=== PATIENT | male | born 1980 | race Hispanic/Latino ===

== ENCOUNTER → 2021-01-02 | Outpatient (CLI) | payer MEDICARE | END | disposition home or self-care (01) | LOC: SHCH 13:27 | PROVIDERS: ATTEND Internal Medicine Cardiovascular Disease | DX: I08.3 Combined rheumatic disorders of mitral, aortic and tricuspid valves (principal); I27.20 Pulmonary hypertension, unspecified; I10 Essential (primary) hypertension; E66.9 Obesity, unspecified; E78.5 Hyperlipidemia, unspecified; Z83.3 Family history of diabetes mellitus; F17.210 Nicotine dependence, cigarettes, uncomplicated | CPT/HCPCS: 93306; 93356 ==

== ENCOUNTER 2021-03-06 06:53 | Inpatient (IN) | payer MEDICARE ==
[2021-03-02 11:26] LABS: BASOPHILS % (AUTO) 0.8 % (0.0-5.0); EOSINOPHILS % (AUTO) 1.9 % (0.0-8.0); HEMATOCRIT 38.3 % (42-54); LYMPHOCYTES % (AUTO) 27.9 % (21.0-51.0); MEAN CORPUSCULAR HEMOGLOBIN 31.6 pg (27.0-33.0); MEAN CORPUSCULAR HGB CONC 32.9 g/dL (32.0-36.0); MONOCYTES % (AUTO) 4.7 % (3.0-13.0); NEUTROPHILS % (AUTO) 64.3 % (40.0-77.0); PLATELET COUNT (AUTO) 219 K/uL (130-400); RED BLOOD CELL COUNT(AUTO) 3.99 MIL/uL (4.50-6.20); RED CELL DISTRIBUTION WIDTH 13.2 % (11.0-15.5); WHITE BLOOD COUNT (AUTO) 7.8 K/uL (4.8-10.8)
[2021-03-02 11:36] LABS: POTASSIUM 4.9 mmol/L (3.5-5.1)
[2021-03-02 11:38] LABS: CREATININE 11.5 mg/dL (0.5-1.5)
[2021-03-02 11:55] LABS: INR 1.03 (0.85-1.15); PROTHROMBIN TIME 11.2 SEC (9.6-11.6)
[2021-03-02 11:56] LABS: PARTIAL THROMBOPLASTIN TIME 30.2 SEC (26.3-35.5)
[2021-03-04] MEDS: DiphenhydrAMINE HCL 50 MG/ML VIAL IVP SCH (09:45)
[2021-03-05] MEDS: DiphenhydrAMINE HCL 50 MG/ML VIAL IVP SCH (15:00)
[~2021-03-06] VITALS: Ht 167.6 cm; Wt 107.0 kg
[2021-03-06] VITALS (17 sets, daily range): BP systolic 108–224; BP diastolic 63–94
[~2021-03-06 06:53] MED LIST: 0.9% NACL 500ML IV.SOLN 500 ML IV SCH; ACETAMINOPHEN 325 MG TAB PO PRN; APIX2.5T PO; ATOR20TA65 PO; CLON0.2T PO; CLOP75TA14 PO; OMEG100014 PO; PANT40TA55 PO; PROM25TA7 PO; ZOLP5TAB8 PO; auryxia PO
[2021-03-06] MEDS ORDERED: 0.9%NACL 1000ML 1,000 ML IV SCH ×2 (08:00→15:30)
[2021-03-06] MEDS ORDERED: INSULIN HUMULIN R 100 UNIT/ML 3ML ONE ×3 (08:48→10:37)
[2021-03-06] MEDS ORDERED: IOHEXOL 350 MG/ML 100ML INFUS..BTL IV ONE (09:40)
[2021-03-06] MEDS ORDERED: MEPERIDINE-PF 25 MG/ML SYG ONE (09:40)
[2021-03-06] MEDS ORDERED: HEPARIN 10,000 UNIT/10ML (1,000 UNIT/ML) VIAL ONE (09:40)
[2021-03-06] MEDS ORDERED: MIDAZOLAM HCL 1 MG/ML 2ML VIAL ONE (09:40)
[2021-03-06] MEDS ORDERED: NITROGLYCERIN 2 MG VIAL IV ONE (09:40)
[2021-03-06] MEDS ORDERED: IOHEXOL-350 50ML VIAL IV ONE (09:40)
[2021-03-06] MEDS ORDERED: LIDOCAINE HCL 400MG/20ML VIAL ONE (09:40)
[2021-03-06] MEDS: SOLU-MEDROL 125MG VIAL IVP SCH ×2 (09:50→15:41)
[2021-03-06] MEDS ORDERED: LABETALOL 20MG VIAL IV ONE (10:29)
[2021-03-06] MEDS ORDERED: HYDRALAZINE 20MG/ML VIAL ONE (10:34)
[2021-03-06] MEDS ORDERED: DEXTROSE 50%-WATER 50 ML DISP.SYRIN IV PRN ×2 (11:30→19:30)
[2021-03-06] MEDS ORDERED: GLUCAGON 1MG KIT 1 MG ML IM PRN ×2 (11:30→19:30)
[2021-03-06] MEDS ORDERED: INSULIN HUMULIN R 100 UNIT/ML 3ML SQ SCH (12:00)
[2021-03-06 12:24] LABS: LYMPHOCYTES % (AUTO) 5.2 % (21.0-51.0); MEAN CORPUSCULAR HEMOGLOBIN 32.6 pg (27.0-33.0); MEAN CORPUSCULAR VOLUME 93.2 fL (79-99); MONOCYTES % (AUTO) 1.3 % (3.0-13.0); NEUTROPHILS % (AUTO) 92.9 % (40.0-77.0); PLATELET COUNT (AUTO) 211 K/uL (130-400); RED BLOOD CELL COUNT(AUTO) 3.65 MIL/uL (4.50-6.20); RED CELL DISTRIBUTION WIDTH 12.7 % (11.0-15.5); WHITE BLOOD COUNT (AUTO) 13.4 K/uL (4.8-10.8)
[2021-03-06] MEDS ORDERED: POTASSIUM CHLORIDE 10MEQ/100ML 100 ML IV PRN ×2 (12:30→15:30)
[2021-03-06] MEDS ORDERED: PROMETHAZINE HCL 25 MG TABLET PO PRN (12:30)
[2021-03-06] MEDS ORDERED: CLONIDINE HCL 0.2 MG TABLET PO PRN (12:30)
[2021-03-06 12:31] LABS: ALBUMIN 3.5 g/dL (3.5-5.0); BILIRUBIN,TOTAL 0.4 mg/dL (0.2-1.0); POTASSIUM 4.2 mmol/L (3.5-5.1); TOTAL PROTEIN, SERUM 7.5 g/dL (6.0-8.3)
[2021-03-06 12:34] LABS: CREATININE 9.5 mg/dL (0.5-1.5); HEMOGLOBIN A1C 10.4 % (4.0-6.0)
[2021-03-06 14:25] LABS: ABG BASE EXCESS -4.2 mmol/L (-2.0-3.0); ABG HCO3 19.8 mmol/L (21.0-28.0); ABG OXYGEN SATURATION 97.8 % (95.0-99.0); ABG PCO2 33 mmHg (35-48)
[2021-03-06] MEDS ORDERED: AMLODIPINE 5 MG TAB PO ONE (15:00)
[2021-03-06] MEDS ORDERED: ACETAMINOPHEN WITH CODEINE 1 TAB TAB ONE (15:13)
[2021-03-06] MEDS ORDERED: INSULIN REGULAR, HUMAN 3ML 100 UNIT in 0.9%NACL 100ML 99 ML IV PRN ×2 (15:30)
[2021-03-06] MEDS: INSULIN HUMULIN R 100 UNIT/ML 3ML IV SCH (15:30)
[2021-03-06] MEDS ORDERED: DEXTROSE 5 %-0.45 % NACL 1,000 ML IV PRN (15:30)
[2021-03-06] MEDS: ACETAMINOPHEN WITH CODEINE 1 TAB TAB PO PRN (15:43)
[2021-03-06] MEDS: FERRIC CITRATE PO SCH (16:45)
[2021-03-06 17:18] LABS: POTASSIUM 5.1 mmol/L (3.5-5.1)
[2021-03-06 17:37] LABS: CREATININE 9.8 mg/dL (0.5-1.5)
[2021-03-06] MEDS: DiphenhydrAMINE HCL 50 MG/ML VIAL IVP SCH (19:00)
[2021-03-06] MEDS: ATORVASTATIN 20 MG TABLET PO SCH (20:29)
[2021-03-06] MEDS: PANTOPRAZOLE 40 MG TAB DR PO SCH (20:29)
[2021-03-06 23:55] LABS: POTASSIUM 5.3 mmol/L (3.5-5.1)
[2021-03-07] VITALS (38 sets, daily range): BP systolic 97–148; BP diastolic 42–83
[2021-03-07 00:05] LABS: CREATININE 10.4 mg/dL (0.5-1.5)
[2021-03-07 05:51] LABS: POTASSIUM 5.2 mmol/L (3.5-5.1)
[2021-03-07 06:00] LABS: CREATININE 11.1 mg/dL (0.5-1.5)
[2021-03-07] MEDS: FERRIC CITRATE PO SCH ×3 (08:00→16:30)
[2021-03-07] MEDS: INSULIN HUMULIN R 100 UNIT/ML 3ML IV SCH (08:33)
[2021-03-07] MEDS: FISH OIL 1000 MG/CAP PO SCH (08:56)
[2021-03-07] MEDS: PANTOPRAZOLE 40 MG TAB DR PO SCH ×2 (08:56→20:49)
[2021-03-07] MEDS: ACETAMINOPHEN WITH CODEINE 1 TAB TAB PO PRN (08:57)
[2021-03-07 11:56] LABS: POTASSIUM 4.7 mmol/L (3.5-5.1)
[2021-03-07 12:00] LABS: CREATININE 11.7 mg/dL (0.5-1.5)
[2021-03-07] MEDS ORDERED: INSULIN GLARGINE 100 UNITS/ML 10 ML VIAL SQ ONE (15:45)
[2021-03-07] MEDS: INSULIN HUMULIN R 100 UNIT/ML 3ML SQ SCH ×3 (16:28→20:50)
[2021-03-07 19:46] LABS: CHOLESTEROL 157 mg/dL (<200); HDL CHOLESTEROL 53 mg/dL (29-71); LDL DIRECT 82 mg/dL (0-99); TRIGLYCERIDES 72 mg/dL (30-200)
[2021-03-07] MEDS: ATORVASTATIN 20 MG TABLET PO SCH (20:49)
[2021-03-08] VITALS (27 sets, daily range): BP systolic 77–143; BP diastolic 49–89
[2021-03-08] MEDS: INSULIN HUMULIN R 100 UNIT/ML 3ML SQ SCH ×8 (05:47→20:29)
[2021-03-08] MEDS: FERRIC CITRATE PO SCH ×3 (08:00→17:00)
[2021-03-08 08:15] LABS: HEPATITIS Bs ANTIGEN SCREEN P Negative (Negative)
[2021-03-08] MEDS: SOLU-MEDROL 40MG VIAL IVP SCH (08:30)
[2021-03-08] MEDS: DiphenhydrAMINE HCL 50 MG/ML VIAL IV SCH (08:30)
[2021-03-08 08:34] LABS: BASOPHILS % (AUTO) 0.2 % (0.0-5.0); EOSINOPHILS % (AUTO) 0.5 % (0.0-8.0); HEMATOCRIT 39.1 % (42-54); LYMPHOCYTES % (AUTO) 25.9 % (21.0-51.0); MEAN CORPUSCULAR HEMOGLOBIN 31.4 pg (27.0-33.0); MEAN CORPUSCULAR HGB CONC 34.3 g/dL (32.0-36.0); MEAN CORPUSCULAR VOLUME 91.6 fL (79-99); MONOCYTES % (AUTO) 7.6 % (3.0-13.0); NEUTROPHILS % (AUTO) 65.3 % (40.0-77.0); PLATELET COUNT (AUTO) 250 K/uL (130-400); RED BLOOD CELL COUNT(AUTO) 4.27 MIL/uL (4.50-6.20); RED CELL DISTRIBUTION WIDTH 13.4 % (11.0-15.5); WHITE BLOOD COUNT (AUTO) 11.4 K/uL (4.8-10.8)
[2021-03-08 08:42] LABS: MAGNESIUM 1.9 mg/dL (1.80-2.40); POTASSIUM 3.8 mmol/L (3.5-5.1)
[2021-03-08 08:48] LABS: CREATININE 9.5 mg/dL (0.5-1.5)
[2021-03-08 08:57] LABS: INR 1.07 (0.85-1.15); PROTHROMBIN TIME 11.6 SEC (9.6-11.6)
[2021-03-08] MEDS ORDERED: HEPARIN 10,000 UNIT/10ML (1,000 UNIT/ML) VIAL ONE (08:57)
[2021-03-08 08:58] LABS: PARTIAL THROMBOPLASTIN TIME 24.6 SEC (26.3-35.5)
[2021-03-08] MEDS ORDERED: NITROGLYCERIN 2 MG VIAL IV ONE (08:58)
[2021-03-08] MEDS ORDERED: IOHEXOL-350 50ML VIAL IV ONE (08:58)
[2021-03-08] MEDS ORDERED: MIDAZOLAM HCL 1 MG/ML 2ML VIAL ONE (08:58)
[2021-03-08] MEDS ORDERED: FENTANYL CITRATE PF 50 MCG/1 ML 2ML VIAL ONE (08:58)
[2021-03-08] MEDS ORDERED: IOHEXOL 350 MG/ML 100ML INFUS..BTL IV ONE (08:58)
[2021-03-08] MEDS ORDERED: LIDOCAINE HCL 400MG/20ML VIAL ONE ×2 (08:59→12:22)
[2021-03-08] MEDS: FISH OIL 1000 MG/CAP PO SCH (09:00)
[2021-03-08] MEDS ORDERED: MIDODRINE HCL 5 MG TABLET PO SCH (09:30)
[2021-03-08] MEDS ORDERED: 0.9% NACL 500ML IV.SOLN 500 ML IV ONE (09:30)
[2021-03-08] MEDS: MIDODRINE HCL 5 MG TABLET PO SCH ×3 (09:35→20:27)
[2021-03-08] MEDS: PANTOPRAZOLE 40 MG TAB DR PO SCH ×2 (09:35→20:27)
[2021-03-08] MEDS ORDERED: SOLU-MEDROL 125MG VIAL ONE (12:10)
[2021-03-08] MEDS ORDERED: TRAMADOL HCL 50 MG TABLET PO ONE (14:00)
[2021-03-08] MEDS: ACETAMINOPHEN WITH CODEINE 1 TAB TAB PO PRN ×2 (16:27→20:27)
[2021-03-08] MEDS: ATORVASTATIN 20 MG TABLET PO SCH (20:27)
[2021-03-08] MEDS: TRAMADOL /APAP 37.5MG/325MG TAB PO PRN (20:28)
[2021-03-09] VITALS (30 sets, daily range): BP systolic 93–148; BP diastolic 42–98
[2021-03-09] MEDS: ACETAMINOPHEN WITH CODEINE 1 TAB TAB PO PRN ×2 (02:43→07:46)
[2021-03-09] MEDS: TRAMADOL /APAP 37.5MG/325MG TAB PO PRN ×2 (02:43→11:31)
[2021-03-09 03:48] LABS: HEMATOCRIT 39.1 % (42-54); LYMPHOCYTES % (AUTO) 11.2 % (21.0-51.0); MEAN CORPUSCULAR HEMOGLOBIN 31.7 pg (27.0-33.0); MEAN CORPUSCULAR VOLUME 93.3 fL (79-99); NEUTROPHILS % (AUTO) 79.3 % (40.0-77.0); PLATELET COUNT (AUTO) 230 K/uL (130-400); RED BLOOD CELL COUNT(AUTO) 4.19 MIL/uL (4.50-6.20); RED CELL DISTRIBUTION WIDTH 13.6 % (11.0-15.5); WHITE BLOOD COUNT (AUTO) 9.3 K/uL (4.8-10.8)
[2021-03-09 04:13] LABS: MAGNESIUM 2.1 mg/dL (1.80-2.40); POTASSIUM 5.6 mmol/L (3.5-5.1)
[2021-03-09 04:16] LABS: CREATININE 11.8 mg/dL (0.5-1.5)
[2021-03-09] MEDS: INSULIN HUMULIN R 100 UNIT/ML 3ML SQ SCH ×8 (05:39→19:46)
[2021-03-09] MEDS: FERRIC CITRATE PO SCH ×3 (08:00→16:16)
[2021-03-09] MEDS: SOLU-MEDROL 40MG VIAL IVP SCH (08:30)
[2021-03-09] MEDS: DiphenhydrAMINE HCL 50 MG/ML VIAL IV SCH (08:30)
[2021-03-09] MEDS: INSULIN GLARGINE 100 UNITS/ML 10 ML VIAL SQ SCH ×2 (09:00→09:40)
[2021-03-09] MEDS ORDERED: INSULIN GLARGINE 100 UNITS/ML 10 ML VIAL SQ SCH (09:00)
[2021-03-09] MEDS: MIDODRINE HCL 5 MG TABLET PO SCH ×4 (09:30→20:20)
[2021-03-09] MEDS: PANTOPRAZOLE 40 MG TAB DR PO SCH ×2 (09:33→20:20)
[2021-03-09] MEDS: FISH OIL 1000 MG/CAP PO SCH (09:34)
[2021-03-09] MEDS ORDERED: CYCLOBENZAPRINE HCL 10 MG TABLET PO SCH (12:00)
[2021-03-09] MEDS: CYCLOBENZAPRINE HCL 10 MG TABLET PO SCH (13:27)
[2021-03-09 13:58] LABS: BASOPHILS % (AUTO) 0.3 % (0.0-5.0); EOSINOPHILS % (AUTO) 0.6 % (0.0-8.0); HEMATOCRIT 41.7 % (42-54); LYMPHOCYTES % (AUTO) 24.4 % (21.0-51.0); MEAN CORPUSCULAR HEMOGLOBIN 31.6 pg (27.0-33.0); MEAN CORPUSCULAR HGB CONC 34.3 g/dL (32.0-36.0); MEAN CORPUSCULAR VOLUME 92.3 fL (79-99); MONOCYTES % (AUTO) 8.5 % (3.0-13.0); NEUTROPHILS % (AUTO) 65.3 % (40.0-77.0); PLATELET COUNT (AUTO) 206 K/uL (130-400); RED BLOOD CELL COUNT(AUTO) 4.52 MIL/uL (4.50-6.20); RED CELL DISTRIBUTION WIDTH 13.6 % (11.0-15.5); WHITE BLOOD COUNT (AUTO) 11.4 K/uL (4.8-10.8)
[2021-03-09 15:51] LABS: POTASSIUM 3.4 mmol/L (3.5-5.1)
[2021-03-09] MEDS ORDERED: PROMETHAZINE HCL 25 MG TABLET PO ONE (19:14)
[2021-03-09] MEDS: PROMETHAZINE HCL 25 MG/ML 1ML AMPULE IM PRN (20:04)
[2021-03-09] MEDS: APIXABAN 2.5 MG TABLET PO SCH (20:20)
[2021-03-09] MEDS: ATORVASTATIN 20 MG TABLET PO SCH (20:20)
[2021-03-09] MEDS: CLOPIDOGREL 75MG TAB PO SCH (20:20)
[2021-03-10 04:00] VITALS: BP 125/76
[2021-03-10] MEDS: INSULIN HUMULIN R 100 UNIT/ML 3ML SQ SCH ×6 (05:42→21:00)
[2021-03-10 06:27] LABS: BASOPHILS % (AUTO) 0.1 % (0.0-5.0); EOSINOPHILS % (AUTO) 1.8 % (0.0-8.0); HEMATOCRIT 38.4 % (42-54); LYMPHOCYTES % (AUTO) 21.9 % (21.0-51.0); MEAN CORPUSCULAR HEMOGLOBIN 31.4 pg (27.0-33.0); MEAN CORPUSCULAR HGB CONC 33.3 g/dL (32.0-36.0); MEAN CORPUSCULAR VOLUME 94.1 fL (79-99); MONOCYTES % (AUTO) 6.2 % (3.0-13.0); NEUTROPHILS % (AUTO) 69.3 % (40.0-77.0); PLATELET COUNT (AUTO) 214 K/uL (130-400); RED BLOOD CELL COUNT(AUTO) 4.08 MIL/uL (4.50-6.20); RED CELL DISTRIBUTION WIDTH 13.9 % (11.0-15.5); WHITE BLOOD COUNT (AUTO) 13.7 K/uL (4.8-10.8)
[2021-03-10 06:43] LABS: PHOSPHORUS 6.7 mg/dL (2.5-4.9)
[2021-03-10 06:45] LABS: CREATININE 10.5 mg/dL (0.5-1.5)
[2021-03-10] MEDS: FERRIC CITRATE PO SCH ×3 (08:00→17:00)
[2021-03-10 08:17] VITALS: BP 93/62
[2021-03-10] MEDS: DiphenhydrAMINE HCL 50 MG/ML VIAL IV SCH (08:30)
[2021-03-10] MEDS: SOLU-MEDROL 40MG VIAL IVP SCH (08:30)
[2021-03-10] MEDS: MIDODRINE HCL 5 MG TABLET PO SCH ×4 (08:42→21:20)
[2021-03-10] MEDS: PANTOPRAZOLE 40 MG TAB DR PO SCH ×2 (08:42→21:20)
[2021-03-10] MEDS: CLOPIDOGREL 75MG TAB PO SCH (08:43)
[2021-03-10] MEDS: FISH OIL 1000 MG/CAP PO SCH (08:43)
[2021-03-10] MEDS: APIXABAN 2.5 MG TABLET PO SCH ×2 (08:43→21:20)
[2021-03-10] MEDS: PROMETHAZINE HCL 25 MG/ML 1ML AMPULE IM PRN (10:47)
[2021-03-10 11:23] VITALS: BP 95/62
[2021-03-10] MEDS: INSULIN GLARGINE 100 UNITS/ML 10 ML VIAL SQ SCH (11:45)
[2021-03-10] MEDS: CYCLOBENZAPRINE HCL 10 MG TABLET PO SCH (14:04)
[2021-03-10 16:38] VITALS: BP 96/55
[2021-03-10 20:00] VITALS: BP 88/50
[2021-03-10] MEDS: ATORVASTATIN 20 MG TABLET PO SCH (21:20)
[2021-03-11] VITALS: BP 104/53
[2021-03-11 04:00] VITALS: BP 140/75
[2021-03-11 05:05] LABS: BASOPHILS % (AUTO) 0.2 % (0.0-5.0); EOSINOPHILS % (AUTO) 2.9 % (0.0-8.0); HEMATOCRIT 35.9 % (42-54); LYMPHOCYTES % (AUTO) 22.7 % (21.0-51.0); MEAN CORPUSCULAR HEMOGLOBIN 31.7 pg (27.0-33.0); MEAN CORPUSCULAR HGB CONC 33.4 g/dL (32.0-36.0); MEAN CORPUSCULAR VOLUME 94.7 fL (79-99); MONOCYTES % (AUTO) 6.5 % (3.0-13.0); NEUTROPHILS % (AUTO) 67.2 % (40.0-77.0); PLATELET COUNT (AUTO) 212 K/uL (130-400); RED BLOOD CELL COUNT(AUTO) 3.79 MIL/uL (4.50-6.20); RED CELL DISTRIBUTION WIDTH 13.8 % (11.0-15.5); WHITE BLOOD COUNT (AUTO) 12.6 K/uL (4.8-10.8)
[2021-03-11] MEDS: PROMETHAZINE HCL 25 MG/ML 1ML AMPULE IM PRN (05:06)
[2021-03-11 05:55] LABS: POTASSIUM 4.4 mmol/L (3.5-5.1)
[2021-03-11] MEDS: INSULIN HUMULIN R 100 UNIT/ML 3ML SQ SCH ×2 (05:59→06:47)
[2021-03-11 06:03] LABS: CREATININE 12.5 mg/dL (0.5-1.5)
[2021-03-11 08:14] VITALS: BP 131/63
[2021-03-11] MEDS: INSULIN GLARGINE 100 UNITS/ML 10 ML VIAL SQ SCH (09:00)
[2021-03-11] MEDS: FISH OIL 1000 MG/CAP PO SCH (09:07)
[2021-03-11] MEDS: APIXABAN 2.5 MG TABLET PO SCH (09:07)
[2021-03-11] MEDS: MIDODRINE HCL 5 MG TABLET PO SCH (09:07)
[2021-03-11] MEDS: PANTOPRAZOLE 40 MG TAB DR PO SCH (09:07)
[2021-03-11] MEDS: CLOPIDOGREL 75MG TAB PO SCH (09:08)
== END 2021-03-11 10:24 | disposition home or self-care (01) | DRG 637 ==
LOC: DAH 06:53 → DAHIP 06:54 → DAH 06:54 → 2DH 15:09 → 3CH 03-09 23:32
PROVIDERS: ADMIT Internal Medicine; ATTEND Internal Medicine
PROC: 4A023N7 Measurement of Cardiac Sampling and Pressure, Left Heart, Percutaneous Approach (ICD-10-PCS; principal; 2021-03-08)
PROC: B2111ZZ Fluoroscopy of Multiple Coronary Arteries using Low Osmolar Contrast (ICD-10-PCS; 2021-03-08)
PROC: B41G1ZZ Fluoroscopy of Left Lower Extremity Arteries using Low Osmolar Contrast (ICD-10-PCS; 2021-03-08)
PROC: 3E1M39Z Irrigation of Peritoneal Cavity using Dialysate, Percutaneous Approach (ICD-10-PCS; 2021-03-08)
DX: E11.00 Type 2 diabetes mellitus with hyperosmolarity without nonketotic hyperglycemic-hyperosmolar coma (NKHHC) (principal); N18.6 End stage renal disease; D68.59 Other primary thrombophilia; E87.1 Hypo-osmolality and hyponatremia; I12.0 Hypertensive chronic kidney disease with stage 5 chronic kidney disease or end stage renal disease; I16.0 Hypertensive urgency; E66.01 Morbid (severe) obesity due to excess calories; E11.22 Type 2 diabetes mellitus with diabetic chronic kidney disease; E11.319 Type 2 diabetes mellitus with unspecified diabetic retinopathy without macular edema; E11.65 Type 2 diabetes mellitus with hyperglycemia; T38.0X5A Adverse effect of glucocorticoids and synthetic analogues, initial encounter; K31.84 Gastroparesis; E78.5 Hyperlipidemia, unspecified; H54.3 Unqualified visual loss, both eyes; E11.51 Type 2 diabetes mellitus with diabetic peripheral angiopathy without gangrene; E11.40 Type 2 diabetes mellitus with diabetic neuropathy, unspecified; I25.10 Atherosclerotic heart disease of native coronary artery without angina pectoris; D64.9 Anemia, unspecified; E11.649 Type 2 diabetes mellitus with hypoglycemia without coma; G47.33 Obstructive sleep apnea (adult) (pediatric); I35.2 Nonrheumatic aortic (valve) stenosis with insufficiency; I95.89 Other hypotension; E11.43 Type 2 diabetes mellitus with diabetic autonomic (poly)neuropathy; E87.5 Hyperkalemia; Z68.38 Body mass index [BMI] 38.0-38.9, adult; Z95.3 Presence of xenogenic heart valve; Z99.2 Dependence on renal dialysis; Z87.891 Personal history of nicotine dependence; Z88.8 Allergy status to other drugs, medicaments and biological substances; Z79.4 Long term (current) use of insulin; Z91.041 Radiographic dye allergy status; Z88.1 Allergy status to other antibiotic agents; Z91.013 Allergy to seafood; Z79.84 Long term (current) use of oral hypoglycemic drugs; Z79.01 Long term (current) use of anticoagulants; Y92.89 Other specified places as the place of occurrence of the external cause; Z86.711 Personal history of pulmonary embolism; Z86.718 Personal history of other venous thrombosis and embolism; Z91.14 Patient's other noncompliance with medication regimen; Z83.3 Family history of diabetes mellitus; Z82.49 Family history of ischemic heart disease and other diseases of the circulatory system
CPT/HCPCS: 36415; 36600; 71045; 80048; 80053; 80061; 82010; 82435; 82533; 82803; 82947; 82948; 83036; 83605; 83735; 83930; 84100; 84132; 84145; 84295; 84484; 85018; 85025; 85610; 85730; 86704; 86706; 87340; 90935; 93005; 93454; 93458; 97039; 99156; 99157; A4606; C1760; C1769; C1887; C1894; G0378; J0360; J1200; J1644; J1815; J2175; J2250; J2550; J2930; J3010; J3490; J7030; J7040; J7070; Q0169; Q9967